=== PATIENT | male | born 1970 | race African-American/Black ===

== ENCOUNTER → 2016-12-06 | Emergency (ER) | payer OTHER ==
[~2016-12-06] MED LIST: FLUORESCEIN NA 1 EA STRIP ONE; IBUPROFEN 600 MG TABLET (FP) PO ONE; TETRACAINE 0.5% OPHTH SOLN 2 ML BOTTLE ONE; TOBRA 0.3%/DEXAMETH 0.1% OPHTHALMIC SUSP 2.5 ML BTL OS ONE; TOBRAMYCIN 0.3% OPHTH SOLN 5 ML BOTTLE ONE
[2016-12-06 04:37] VITALS: BP 149/90; PULSE 84; TEMP 98.7
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
== END | disposition home or self-care (01) ==
LOC: JER 04:19
DX: H57.8 Other specified disorders of eye and adnexa (principal); F17.210 Nicotine dependence, cigarettes, uncomplicated
CPT/HCPCS: 99282-25

== ENCOUNTER 2017-12-27 05:53 | Emergency (ER) | payer OTHER ==
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
[2017-12-27] MEDS ORDERED: ALBUTEROL SO4 2.5/IPRATROPIUM 0.5 INH SOL 3 ML VIAL.NEB. NEB ONE ×2 (06:17→06:25)
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
[2017-12-27 06:35] VITALS: BMI 25.0
--- NOTE | 2017-12-27 07:09 | PDOC ---
*Physical Exam - Vital Signs Last Vital Signs Temp Pulse Resp BP Pulse Ox 97.4 F L 91 H 18 131/77 97 12/27/17 06:05 12/27/17 06:05 12/27/17 06:05 12/27/17 06:05 12/27/17 06:05 - Physical Exam Comments: 12/27/17 07:09 Pt signed out [address] Dr[address] Schmitt. Pt continues to adamant about only allowing EKG and CXR. <Jeremy Castillo - Last Filed: 12/27/17 08:16> - Vital Signs Last Vital Signs Temp Pulse Resp BP Pulse Ox 97.6 F 76 16 134/80 98 12/27/17 07:58 12/27/17 07:58 12/27/17 07:58 12/27/17 07:58 12/27/17 07:58 <Dyan Grant - Last Filed: 12/28/17 08:46> ED Treatment Course - Medications Given in the ED: ED Medications Discontinued Medications Generic Name Dose Route Start Last Admin Trade Name Freq PRN Reason Stop Dose Admin Albuterol/Ipratropium 1 amp 12/27/17 06:17 12/27/17 06:28 Duoneb - NEB 12/27/17 06:18 1 amp ONCE ONE Administration <Jeremy Castillo - Last Filed: 12/27/17 08:16> - Medications Given in the ED: ED Medications Discontinued Medications Generic Name Dose Route Start Last Admin Trade Name Freq PRN Reason Stop Dose Admin Albuterol/Ipratropium 1 amp 12/27/17 06:17 12/27/17 06:28 Duoneb - NEB 12/27/17 06:18 1 amp ONCE ONE Administration <Dyan Grant - Last Filed: 12/28/17 08:46> Medical Decision Making - Medical Decision Making 12/27/17 07:46 Would like to check second EKG, already talked with patient and agreeable. Will give basis for evolving cardiac event. 12/27/17 08:04 2nd EKG performed, showing unchanged from previous with acute ST changes noted in V2-V4 12/27/17 08:07 I expressed concern over the pt's EKG and explained that this is concerning for a possible IN. Pt refused any further intervention and relayed back to me that he understood this concern, however would still like to leave. He acknowledged that this can be life-threatening but still refused any futher treatment and intervention. Pt is alert, oriented x3, and has decision making capacity. Pt signed AMA and walked out with normal and stable gait from the ED. Pt previously refused any IV placement and did not have one in his arm. <Jeremy Castillo - Last Filed: 12/27/17 08:16> *DC/Admit/Observation/Transfer <JonathanJeremy - Last Filed: 12/27/17 08:16> - Discharge Dispostion Admit: No - Attestations Physician Attestion: 12/27/17 08:12 Patient received at 7am signout. At this point he has a stable gait, AAOx3. He continues to refuse workup for possible CAD. Initial EKG concerning for ST elevations V2-4 as well as pseudonormalization of T waves in inferior leads. Repeat EKG with resolving ST elevations in V2-4. Explained to him that this is extremely concerning and he may be having IN. He refused any intervention, refused IV. He acknowledges that this can be life-threatening, but refuses to have anything done. He is alert, oriented, and has decision-making capacity. Signed out AMA. Walked out of ED with stable gait. <Dyan Grant - Last Filed: 12/28/17 08:46> Diagnosis at time of Disposition: Chest pain Qualifiers: Chest pain type: unspecified Qualified Code(s): R07.9 - Chest pain, unspecified - Discharge Dispostion Disposition: AGAINST MEDICAL ADVICE Condition at time of disposition: Stable - Referrals Referrals: Patience Huffman [Primary Care Provider] - - Patient Instructions - Post Discharge Activity
[2017-12-27 08:00] VITALS: BP 134/80; PULSE 76; TEMP 97.6
--- NOTE | 2017-12-29 12:51 | EKG ---
Test Reason : Blood Pressure : / mmHG Vent. Rate : 068 BPM Atrial Rate : 068 BPM P-R Int : 124 ms QRS Dur : 080 ms QT Int : 422 ms P-R-T Axes : 062 069 042 degrees QTc Int : 448 ms POOR DATA QUALITY, INTERPRETATION MAY BE ADVERSELY AFFECTED NORMAL SINUS RHYTHM MINIMAL VOLTAGE CRITERIA FOR LVH, MAY BE NORMAL VARIANT BORDERLINE ECG WHEN COMPARED WITH ECG OF 24-OCT-2014 08:17, T WAVE INVERSION NO LONGER EVIDENT IN INFERIOR LEADS T WAVE AMPLITUDE HAS DECREASED IN ANTERIOR LEADS Confirmed by HECTOR SAWYER, JULY ([id number]) on 12/29/2017 12:51:31 PM Referred By: Confirmed By:JULY YOUNG MD
--- NOTE | 2017-12-29 12:51 | EKG ---
Test Reason : Blood Pressure : / mmHG Vent. Rate : 074 BPM Atrial Rate : 074 BPM P-R Int : 148 ms QRS Dur : 102 ms QT Int : 402 ms P-R-T Axes : 081 099 050 degrees QTc Int : 446 ms NORMAL SINUS RHYTHM WITH SINUS ARRHYTHMIA RIGHTWARD AXIS VOLTAGE CRITERIA FOR LEFT VENTRICULAR HYPERTROPHY ABNORMAL ECG WHEN COMPARED WITH ECG OF 27-DEC-2017 06:38, ST ELEVATION NOW PRESENT IN ANTERIOR LEADS T WAVE AMPLITUDE HAS INCREASED IN ANTEROLATERAL LEADS Confirmed by JULY YOUNG MD ([id number]) on 12/29/2017 12:51:05 PM Referred By: Confirmed By:JULY YOUNG MD
== END 2017-12-27 08:23 | disposition left against medical advice (07) ==
LOC: JER 05:53
PROC: 3E0F7GC Introduction of Other Therapeutic Substance into Respiratory Tract, Via Natural or Artificial Opening (ICD-10-PCS; principal; 2017-12-27)
DX: R07.89 Other chest pain (principal); J45.909 Unspecified asthma, uncomplicated; F10.120 Alcohol abuse with intoxication, uncomplicated; Y90.9 Presence of alcohol in blood, level not specified; F17.210 Nicotine dependence, cigarettes, uncomplicated
CPT/HCPCS: 93005; 93010; 94640; 99283-25